=== PATIENT | female | born 1990 ===

== ENCOUNTER 2016-08-31 10:20 | Emergency (ER) | payer OTHER ==
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
== END 2016-08-31 10:55 | disposition home or self-care (01) ==
LOC: UCCORT 10:20
DX: T20.10XA Burn of first degree of head, face, and neck, unspecified site, initial encounter (principal); T31.0 Burns involving less than 10% of body surface; X10.1XXA Contact with hot food, initial encounter; Y93.9 Activity, unspecified; Y92.9 Unspecified place or not applicable
CPT/HCPCS: 99201; G0463